=== PATIENT | female | born 1955 | race Caucasian/White ===

== ENCOUNTER 2018-07-11 00:20 | Observation (INO) | payer SELFPAY ==
[2018-07-11] MEDS ORDERED: Fentanyl 100 MCG/2 ML VIAL ONE ×2 (01:43→22:32)
[2018-07-11 01:59] LABS: CKMB 0.5 ng/mL (0-6.6); Troponin I Less than 0.010 ng/mL (< 0.028)
[2018-07-11] MEDS ORDERED: metroNIDAZOLE 500 MG/100 ML BAG ONE (02:14)
[2018-07-11 03:42] VITALS: BMI 23.1
[2018-07-11] MEDS ORDERED: Sodium Chloride 0.9% 1,000 ML IV SCH (03:45)
[2018-07-11] MEDS ORDERED: Acetaminophen 1,000 MG in Premix Bag 1 BAG IVPB PRN (05:08)
[2018-07-11] MEDS ORDERED: Scopolamine 1.5 mg/72 hour Patch TOP SCH (05:15)
[2018-07-11] MEDS ORDERED: Acetaminophen 1,000 MG in Premix Bag 1 BAG IVPB SCH (05:15)
[2018-07-11] MEDS ORDERED: Ketorolac Tromethamine 30 MG/ML VIAL IVP SCH (05:15)
[2018-07-11] MEDS: Sodium Chloride 0.9% 1,000 ML IV SCH ×2 (05:19→12:47)
[2018-07-11] MEDS: Ketorolac Tromethamine 30 MG/ML VIAL IVP PRN ×2 (06:24→18:28)
--- NOTE | 2018-07-11 08:46 | ULT ---
PRELIMINARY REPORT/[facility]/EMERGENTY AFTER-HOURS PROCEDURE US Abdomen Limited, Right Upper Quadrant EXAM DATE/TIME: 07/11/2018 1:45 AM CLINICAL HISTORY: 63 years old, female; Pain and signs and symptoms; Nausea and vomiting; Abdominal pain; Localized; Ri ght upper quadrant (ruq) TECHNIQUE: Real-time ultrasound of the abdomen with image documentation. Examination was focused on the right up per quadrant. COMPARISON: No relevant prior studies available. FINDINGS: Liver: No acute findings. No mass. Gallbladder: Distended. Multiple gallstones. Gallbladder wall thickening and pericholecystic fluid. P ositive Lazo's sign. Findings are likely related to acute cholecystitis. Common bile duct: Unremarkable. Pancreas: Limited visualization due to bowel gas. Right kidney: No acute findings. No mass. No hydronephrosis. IMPRESSION: Cholelithiasis with findings likely related to acute cholecystitis. Thank you for allowing us to participate in the care of your patient. Dictated and Authenticated by: Ronald Fleming MD 07/11/2018 2:28 AM Central Time ([place] & [place]) FINAL REPORT RIGHT UPPER QUADRANT ULTRASOUND: Date: 07/11/18 FINDINGS/IMPRESSION: I agree with the preliminary report given by Raissa. POS: OFF
--- NOTE | 2018-07-11 08:54 | HP ---
HISTORY OF PRESENT ILLNESS: Xiomara Paredes is a 63-year-old female with a 1 year history of intermit tent epigastric right upper quadrant pain, seen in [facility] on 4 occasions in the last year. She has had a CAT scan performed 03/30/2018 that she was told was normal, but on review o f the CAT scan demonstrates cholelithiasis. She was not aware she had cholelithiasis. She presents on this occasion and ultrasound reveals gallstones. She was seen in the emergency room and transferr ed over to [facility] from [place]. Bilirubin was normal. AST and ALT 79 and 72, nikia line phosphatase 157, lipase is normal. The plan is for laparoscopic video cholecystectomy today. S he understands risks and benefits and consents. ALLERGIES: CODEINE, itching. She can take tramadol without problems. MORPHINE causes hallucination s. She is allergic to PENICILLIN and SULFA. TOBACCO: None for 6 days, 5-6 cigarettes a day prior. ALCOHOL: None. PAST SURGICAL HISTORY: Three C-sections, total abdominal hysterectomy, bilateral salpingo-oophorecto my. PAST MEDICAL HISTORY: Noncontributory. MEDICATIONS: At home tramadol, Zantac, omeprazole. REVIEW OF SYSTEMS: Ten point noncontributory. PHYSICAL EXAMINATION: VITAL SIGNS: Height 5 foot 3, 130 pounds, 23 BMI. Temperature 98.1, 86, 115/68. HEENT: Unremarkable. LUNGS: Clear to auscultation. CARDIAC: Regular rate and rhythm without murmur or gallop. ABDOMEN: Soft. Mild tenderness in the epigastrium and right upper quadrant. EXTREMITIES: Unremarkable. ASSESSMENT AND PLAN: 1. Cholecystitis and cholelithiasis. I have recommended laparoscopic video cholecystectomy. Risk o f infection, bleeding, visceral and biliary injury explained. She consents. 2. Tobacco abuse, cessation last 6 days. 3. Allergies to PENICILLIN. MORPHINE causes hallucination, CODEINE causes rash. She is able to bill e tramadol. PLAN: Laparoscopic video cholecystectomy. Risk and benefits explained, she consents. Questions ans wered.
[2018-07-11] MEDS ORDERED: Glycopyrrolate 0.2 MG/ML 5 ML SYRINGE ONE (16:43)
[2018-07-11] MEDS ORDERED: PROPOFOL 200 MG/20 ML VIAL ONE (16:43)
[2018-07-11] MEDS ORDERED: Lidocaine 1% PF 5 ML VIAL ONE (16:43)
[2018-07-11] MEDS ORDERED: Ondansetron PF 4 MG/2 ML Vial ONE (16:43)
[2018-07-11] MEDS ORDERED: Dexamethasone 20 MG/5 ML VIAL ONE (16:43)
[2018-07-11] MEDS ORDERED: Bupivacaine HCl 0.5%/Epinephrine 1:200,000/PF 30 ml Vial ONE ×2 (18:53→20:44)
[2018-07-11] MEDS ORDERED: Sodium Chloride 0.9% 10 ML ONE (19:11)
[2018-07-11] MEDS ORDERED: traMADol HCl 50 MG TAB PO PRN ×2 (20:53)
[2018-07-11] MEDS ORDERED: Ibuprofen 600 MG TAB PO PRN (20:53)
[2018-07-11] MEDS ORDERED: Acetaminophen 500 MG TAB PO PRN (20:53)
[2018-07-11] MEDS ORDERED: Fentanyl 250 MCG/5 ML VIAL ONE (21:08)
[2018-07-11] MEDS ORDERED: Midazolam HCl 2 mg/2 ml Vial ONE (21:08)
[2018-07-11] MEDS ORDERED: Promethazine HCl 25 MG/ML VIAL IM PRN (22:19)
[2018-07-11] MEDS ORDERED: Meperidine HCl/PF 25 MG/ML VIAL SLOW IVP PRN (22:19)
[2018-07-11] MEDS ORDERED: Promethazine HCl 25 MG/ML VIAL SLOW IVP PRN (22:19)
[2018-07-12 00:21] VITALS: BP 164/68; TEMP 97.9
--- NOTE | 2018-07-12 05:01 | OP ---
DATE OF PROCEDURE: 07/11/2018 PREOPERATIVE DIAGNOSES: Acute cholecystitis and cholelithiasis. POSTOPERATIVE DIAGNOSES: Acute cholecystitis and cholelithiasis. PROCEDURES PERFORMED: Laparoscopic cholecystectomy. ANESTHESIA: General, local 0.5% Marcaine with epinephrine. DESCRIPTION OF PROCEDURE: The patient was taken to the operating room. Under general anesthesia, the abdomen was prepped with ChloraPrep and draped in routine fashion. Local anesthetic was infiltrated in the skin and subcutaneous tissue infraumbilical incision was made, pneumoperitoneum to 15 mmHg was obtained. With a Veress needle placed into the the laparoscope was inserted. The gallbladder was acutely inflamed with adherent omentum. Fundus of the gallbladder was grasped and reflected cephalad. Liver was normal. There was dense inflammatory adhesion, taken out with blunt dissection using cautery for hemostasis. Infundibulum identified. There was a dense inflammatory reaction. Careful dissection revealed a critical view identifying the cystic artery and duct, double clipping and proximally dividing and dissecting the gallbladder from its edematous scarred attachment to the liver bed using cautery. Good hemostasis was obtained with a cautery. Gallbladder was placed in Endobag and removed. Subxiphoid fascia was approximated with 2 [id number] sutures of 0 Vicryl, approximated the anterior rectus sheath, and skin and subcutaneous tissues were irrigated. Pneumoperitoneum evacuated from the abdominal cavity. Good hemostasis ensured with a cautery and all counts were correct. Pneumoperitoneum was reduced. All instruments were removed. All skin incisions were approximated with subdermal 4-0 Monocryl and [place] glue applied. Job ID: [id number]
--- NOTE | 2018-07-12 12:15 | DIS ---
DATE OF ADMISSION: 07/11/2018 DATE OF DISCHARGE: 07/12/2018 DISCHARGE DIAGNOSES: Acute cholecystitis and cholelithiasis. PROCEDURE: Laparoscopic video cholecystectomy. HISTORY: 63-year-old female presented to the emergency room with acute cholecystitis, normal liver function test, gallbladder ultrasound revealing gallstones. She was tender. White count was normal. She had been in the [facility] on 4 different occasions and seen her primary care physician. She was admitted and received intravenous fluids and antibiotics. She underwent laparoscopic video cholecystectomy. Postoperatively, discharged home. Ultram #25, two refills. Follow up in my office in 2 to 3 weeks. Diet and activity as tolerated. No lifting restrictions. Ibuprofen and Tylenol as needed for pain. Ultram if necessary. Job ID: [id number]
--- NOTE | 2018-07-15 19:14 | EKG ---
Test Reason : Blood Pressure : / mmHG Vent. Rate : 135 BPM Atrial Rate : 135 BPM P-R Int : 000 ms QRS Dur : 072 ms QT Int : 378 ms P-R-T Axes : 055 073 074 degrees QTc Int : 567 ms Sinus tachycardia Nonspecific ST and T wave abnormality Abnormal ECG Confirmed by MARGA CLEMENTE DO ([id number]), science editor LOUISE VICTORIA ([id number]) on 07/15/2018 7:14:28 PM Referred By: Confirmed By:MARGA CLEMENTE DO
== END 2018-07-12 00:30 | disposition home or self-care (01) ==
LOC: ERS 00:20 → SURG B 02:17
PROVIDERS: ADMIT Specialist; ATTEND Specialist
PROC: 0FT44ZZ Resection of Gallbladder, Percutaneous Endoscopic Approach (ICD-10-PCS; principal; 2018-07-11)
DX: K80.12 Calculus of gallbladder with acute and chronic cholecystitis without obstruction (principal); F17.210 Nicotine dependence, cigarettes, uncomplicated; Z79.899 Other long term (current) drug therapy; Z88.0 Allergy status to penicillin; Z88.2 Allergy status to sulfonamides; Z88.5 Allergy status to narcotic agent; Z88.6 Allergy status to analgesic agent
CPT/HCPCS: 76705; 82553; 83690; 84484; 87040; 88304; 93005; 96361; 96365; 96374; 96375; 96376; 99406; G0378; J0131; J0670; J1100; J1885; J1956; J2001; J2250; J2405; J2704; J3010